=== PATIENT | female | born 1955 | race Caucasian/White ===

== ENCOUNTER 2020-02-18 11:48 | Emergency (ER) | payer MEDICAID ==
[~2020-02-18] VITALS: Ht 175.3 cm; Wt 71.8 kg
[2020-02-18] MEDS ORDERED: SODIUM CHLORIDE FLUSH 10ML SYR IVF ONE (12:30)
--- NOTE | 2020-02-18 12:35 | NUR ---
PTC/ O ESTRADA FOR 2 MONHS AND FALL ABOUT 10 DAYS WHILE [place]. P FEEL BACKWARDS ONTO HER LEFT BUTTOCKS AND HIT HER HEAD. NO LOC. PT REPORTS BLURRED VISION AFTER FALL. PT DENIES N/V. IV STARTED AND PT ON MONITOR.
[2020-02-18] MEDS ORDERED: QUET50TA5 PO (12:41)
[2020-02-18 12:49] LABS: BASOPHILS # (AUTO) 0.04 x10^3/uL (0-0.1); BASOPHILS % (AUTO) 1 % (0-1); EOSINOPHILS % (AUTO) 1 % (1-7); LYMPHOCYTES # (AUTO) 2.43 x10^3/uL (1-3.4); LYMPHOCYTES % (AUTO) 30 % (22-44); MD NO; MEAN CORPUSCULAR HEMOGLOBIN 33.8 pg (27.0-34.8); MEAN CORPUSCULAR VOLUME 99.4 fL (80-100); MONOCYTES # (AUTO) 0.73 x10^3/uL (0.2-0.8); MONOCYTES % (AUTO) 9 % (2-9); NEUTROPHILS % (AUTO) 59 % (42-75); PLATELET COUNT 277 x10^3/uL (130-400); RED BLOOD COUNT 3.85 x10^6/uL (3.82-5.3); RED CELL DISTRIBUTION WIDTH 13.2 % (9.6-15.2)
[2020-02-18 12:58] LABS: ALBUMIN 3.2 g/dL (3.4-5.0); ANION GAP 8 mmol/L (5-15); CALCIUM 8.2 mg/dL (8.5-10.1); CHLORIDE 109 mmol/L (98-107); CREATININE 0.69 mg/dL (0.55-1.02)
--- NOTE | 2020-02-18 13:19 | NUR ---
PT GIVEN WARM BLANKETS 3 P'S ADDRESSED. WAITING ON CT.
[2020-02-18 13:35] VITALS: BP 113/63
--- NOTE | 2020-02-18 14:04 | NUR ---
PT IN CT.
[2020-02-18] MEDS ORDERED: OMNIPAQUE 350 MG/ML, 100ML BOTTLE ONE ×2 (14:23→14:26)
--- NOTE | 2020-02-18 14:42 | NUR ---
CHART UP FOR MD RECHECK. PT AWARE.
== END 2020-02-18 15:21 | disposition home or self-care (01) ==
LOC: ED 12:35
DX: S00.93XA Contusion of unspecified part of head, initial encounter (principal); S30.1XXA Contusion of abdominal wall, initial encounter; K76.0 Fatty (change of) liver, not elsewhere classified; W19.XXXA Unspecified fall, initial encounter; Y93.89 Activity, other specified; Y92.828 Other wilderness area as the place of occurrence of the external cause; Y99.8 Other external cause status
CPT/HCPCS: 36415; 70450; 74177; 80048; 82040; 85025; 99285; Q9967